=== PATIENT | male | born 1990 | race Caucasian/White ===

== ENCOUNTER 2016-12-05 10:18 | Emergency (ER) | payer OTHER ==
[2016-12-05 11:55] VITALS: BP 142/90
--- NOTE | 2016-12-05 13:26 | UC ---
Eye Complaint HPI - HPI Summary HPI Summary: TWO DAYS OF LEFT UPPER EYELID PAIN AND SWELLING. NO DISCHARGE. NO COLD SYMPTOMS. NO PAIN WITH MOVEMENT OF EYE. NO CHANGES IN VISION, OR DISCOMFORT TO EYE ITSELF. NO FEVER. - History of Current Complaint Chief Complaint: UCEye Stated Complaint: LEFT EYE COMPLAINT Time Seen by Provider: 12/05/16 13:05 Hx Obtained From: Patient Onset/Duration: Gradual Onset, Lasting Days Location of Injury: Eye Lid (upper) Character: Dull Aggravating Factor(s): Nothing Associated Signs And Symptoms: Positive: Swelling - RIGHT UPPER EYELID. Negative: Vision Impairment Right, Vision Impairment Left, Fever - Risk Factors Penetrating Injury Risk Factor: Negative Globe Rupture Risk Factors: Negative Acute Glaucoma Risk Factors: Negative Optic Artery Occlusion Risk Factors: Negative - Allergies/Home Medications Allergies/Adverse Reactions: Allergies Allergy/AdvReac Type Severity Reaction Status Date / Time No Known Allergies Allergy Verified 12/05/16 11:51 PMH/Surg Hx/FS Hx/Imm Hx Previously Healthy: Yes Endocrine History Of: Denies: Diabetes, Thyroid Disease Cardiovascular History Of: Denies: Cardiac Disorders, Hypertension Respiratory History Of: Denies: COPD, Asthma GI/ History Of: Denies: Ulcer - Surgical History Surgical History: Yes Surgery Procedure, Year, and Place: wisdom teeth extraction - Family History Known Family History: Negative: Respiratory Disease - Social History Occupation: Employed Full-time Lives: With Family Alcohol Use: Occasionally Substance Use Type: None Smoking Status (MU): Never Smoked Tobacco Review of Systems Constitutional: Negative Skin: Negative Eyes: Other - LEFT SUPERIOR LID EDEMA ERRETHEMA ENT: Negative Respiratory: Negative Cardiovascular: Negative Gastrointestinal: Negative Genitourinary: Negative Motor: Negative Neurovascular: Negative Musculoskeletal: Negative Neurological: Negative Psychological: Negative All Other Systems Reviewed And Are Negative: Yes Physical Exam Triage Information Reviewed: Yes Appearance: Well-Appearing, No Pain Distress, Well-Nourished Vital Signs: Initial Vital Signs Temp 98.5 F 12/05/16 11:52 Pulse 72 12/05/16 11:52 Resp 16 12/05/16 11:52 BP 142/90 12/05/16 11:52 Pulse Ox 100 12/05/16 11:52 Vital Signs Reviewed: Yes Eyes: Positive: Other: - LEFT SUPERIOR LID ERRETHEMA AT LATERAL ASPECT ENT Exam: Normal ENT: Positive: Normal ENT inspection, Hearing grossly normal, Pharynx normal, TMs normal Dental Exam: Normal Neck exam: Normal Neck: Positive: Supple, Nontender Respiratory Exam: Normal Respiratory: Positive: Chest non-tender, Lungs clear, Normal breath sounds, No respiratory distress Cardiovascular Exam: Normal Cardiovascular: Positive: RRR, No Murmur, Pulses Normal Abdominal Exam: Normal Abdomen Description: Positive: Nontender, No Organomegaly Musculoskeletal Exam: Normal Neurological Exam: Normal Psychological Exam: Normal Skin Exam: Normal Eye Complaint Course/Dx - Differential Dx/Diagnosis Differential Diagnosis/HQI/PQRI: Conjunctivitis, Periorbital Cellulitis, Other Provider Diagnoses: STYE LEFT SUPERIOR EYELID. POSSIBLE EARLY CELLULITIS LEFT SUPERIOR EYELID Discharge - Discharge Plan Condition: Stable Disposition: HOME Prescriptions: Amoxicillin/Clavulanate TAB* [Augmentin TAB 875*] 875 mg PO BID #20 tab Patient Education Materials: Niru (ED) Referrals: Gurdeep Ayala PA [Primary Care Provider] - Aman Dean MD [Medical Doctor] -
== END 2016-12-05 13:34 | disposition home or self-care (01) ==
LOC: UCCORT 10:18
DX: H00.014 Hordeolum externum left upper eyelid (principal)
CPT/HCPCS: 99212; G0463

== ENCOUNTER 2017-02-13 17:31 | Emergency (ER) | payer OTHER ==
[2017-02-13 18:21] VITALS: BP 154/97
--- NOTE | 2017-02-13 18:46 | UC ---
Back Pain HPI - HPI Summary HPI Summary: Patient started having low back pain after working on 02/10/17. starts left low back and radiates accross the low back - History of Current Complaint Chief Complaint: UCBackPain Stated Complaint: LOW BACK PAIN Time Seen by Provider: 02/13/17 18:11 Hx Obtained From: Patient Onset/Duration: Sudden Onset, Lasting Days Timing: Constant Severity Initially: Moderate Severity Currently: Severe Back Pain: Is Discrete @ - low back Character: Aching, Throbbing, Stiffness Aggravating: Movement Alleviating: Rest - Risk Factors AAA Risk Factors: Negative TAD Risk Factors: Negative - Allergies/Home Medications Allergies/Adverse Reactions: Allergies Allergy/AdvReac Type Severity Reaction Status Date / Time No Known Allergies Allergy Verified 02/13/17 18:21 Home Medications: Home Medications Acetaminophen [Extra Strength Acetaminop] 1,000 mg PO ONCE 02/13/17 [History Confirmed 02/13/17] PMH/Surg Hx/FS Hx/Imm Hx Previously Healthy: Yes Endocrine History Of: Denies: Diabetes, Thyroid Disease Cardiovascular History Of: Denies: Cardiac Disorders, Hypertension Respiratory History Of: Denies: COPD, Asthma GI/ History Of: Denies: Ulcer - Surgical History Surgical History: Yes Surgery Procedure, Year, and Place: wisdom teeth extraction - Family History Known Family History: Negative: Respiratory Disease - Social History Alcohol Use: Occasionally Substance Use Type: None Smoking Status (MU): Never Smoked Tobacco - Immunization History Most Recent Influenza Vaccination: none Review of Systems Constitutional: Negative Skin: Negative Eyes: Negative ENT: Negative Respiratory: Negative Cardiovascular: Negative Gastrointestinal: Negative Genitourinary: Negative Motor: Negative Neurovascular: Negative Musculoskeletal: Arthralgia, Myalgia Neurological: Negative Psychological: Negative All Other Systems Reviewed And Are Negative: Yes Physical Exam Triage Information Reviewed: Yes Appearance: Well-Appearing, Well-Nourished, Pain Distress Vital Signs: Initial Vital Signs Temp 98.5 F 02/13/17 18:17 Pulse 76 02/13/17 18:17 Resp 17 02/13/17 18:17 BP 154/97 02/13/17 18:17 Pulse Ox 98 02/13/17 18:17 Vital Signs Reviewed: Yes Eye Exam: Normal Eyes: Positive: Conjunctiva Clear ENT Exam: Normal ENT: Positive: Hearing grossly normal, Pharynx normal, TMs normal Dental Exam: Normal Neck exam: Normal Neck: Positive: Supple, Nontender, No Lymphadenopathy Respiratory Exam: Normal Respiratory: Positive: Chest non-tender, Lungs clear, Normal breath sounds Cardiovascular Exam: Normal Cardiovascular: Positive: RRR, No Murmur, Pulses Normal Abdominal Exam: Normal Abdomen Description: Positive: Nontender, No Organomegaly, Soft Bowel Sounds: Positive: Present Musculoskeletal: Positive: Strength Intact, No Edema, ROM Limited @ - in low back EXT and later flx Neurological Exam: Normal Neurological: Positive: Alert, Muscle Tone Normal Psychological Exam: Normal Skin Exam: Normal Back Pain Course/Dx - Course Course Of Treatment: hx obtained, exam performed, muscle testing performed, educated on stretching and treatment of low back pain - Differential Dx/Diagnosis Differential Diagnosis/HQI/PQRI: Herniated Disc, Strain, Sprain Provider Diagnoses: low back strain Discharge - Discharge Plan Condition: Stable Disposition: HOME Patient Education Materials: Low Back Strain (ED), Lower Back Exercises (ED), Core Strengthening Exercises (GEN) Additional Instructions: 1. take the meidciation as prescribed. 2. start doing the stretches 3. follow up with PT referral
== END 2017-02-13 19:05 | disposition home or self-care (01) ==
LOC: UCCORT 17:31
DX: S39.012A Strain of muscle, fascia and tendon of lower back, initial encounter (principal); X58.XXXA Exposure to other specified factors, initial encounter; Y93.9 Activity, unspecified; Y92.9 Unspecified place or not applicable
CPT/HCPCS: 99211; G0463

== ENCOUNTER 2017-02-20 16:26 | Emergency (ER) | payer OTHER ==
[2017-02-20 16:53] VITALS: BP 144/83
--- NOTE | 2017-03-05 08:48 | UC ---
Back Pain HPI - HPI Summary HPI Summary: Patient presents to with CC of back pain since last week. He was seen in the center and given low back exercises and meloxicam for relief. He notes to continuing back, not better or worse, and feels he cannot go to work in this state. The pain is located in the lumbar spine and radiates to the leg, but denies numbness or tingling. He denies bladder or bowel dysfunction. He states nothing has changed since last week, but states that he feels he would re -injure himself if he goes back to work too early. - History of Current Complaint Chief Complaint: UCBackPain Stated Complaint: RE CK/LOW BACK PAIN Time Seen by Provider: 02/20/17 16:54 Hx Obtained From: Patient Onset/Duration: Gradual Onset Timing: Constant Severity Initially: Moderate Severity Currently: Moderate Pain Intensity: 2 Pain Scale Used: 0-10 Numeric Back Pain: Is Discrete @ - low back Character: Dull, Aching Aggravating: Movement, Lifting Alleviating: Rest Associated Signs And Symptoms: Positive: Negative - Risk Factors AAA Risk Factors: Negative TAD Risk Factors: Negative Cauda Equina Risk Factors: Negative Epidural Abscess Risk Factors: Negative - Allergies/Home Medications Allergies/Adverse Reactions: Allergies Allergy/AdvReac Type Severity Reaction Status Date / Time No Known Allergies Allergy Verified 02/20/17 16:53 PMH/Surg Hx/FS Hx/Imm Hx Previously Healthy: Yes Endocrine History Of: Denies: Diabetes, Thyroid Disease Cardiovascular History Of: Denies: Cardiac Disorders, Hypertension Respiratory History Of: Denies: COPD, Asthma GI/ History Of: Denies: Ulcer - Surgical History Surgical History: None Surgery Procedure, Year, and Place: wisdom teeth extraction - Family History Known Family History: Negative: Respiratory Disease - Social History Occupation: Employed Full-time Lives: With Family Alcohol Use: Occasionally Substance Use Type: None Smoking Status (MU): Never Smoked Tobacco Have You Smoked in the Last Year: No - Immunization History Most Recent Influenza Vaccination: none Review of Systems Constitutional: Negative Respiratory: Negative Cardiovascular: Negative Motor: Negative Neurovascular: Negative Musculoskeletal: Arthralgia - lower back pain Neurological: Negative Psychological: Negative All Other Systems Reviewed And Are Negative: Yes Physical Exam Triage Information Reviewed: Yes Appearance: Well-Appearing, No Pain Distress, Well-Nourished Vital Signs: Initial Vital Signs Temp 98.3 F 02/20/17 16:43 Pulse 85 02/20/17 16:43 Resp 14 02/20/17 16:43 BP 144/83 02/20/17 16:43 Pulse Ox 99 02/20/17 16:43 Vital Signs Reviewed: Yes Eye Exam: Normal Eyes: Positive: Conjunctiva Clear ENT Exam: Normal Dental Exam: Normal Neck exam: Normal Neck: Positive: Supple, Nontender, No Lymphadenopathy Respiratory Exam: Normal Respiratory: Positive: Chest non-tender, Lungs clear Musculoskeletal: Positive: ROM Intact, Other: - Thorough physical exam was performed, focusing on thoracic and lumbar special tests and ROM. Due to patient pain around injury, physical exam was limited. Limited ROM. Flip Test negative. Straight leg raise positive. Kernig test positive. Negative Babinksi. Hip flexion and extension, knee extension, dorsiflexion, great toe extension and plantar flexion intact. Rotating at hips limited d/t pain. Nerve roots L4- S2 reflexes intact. L1-S2 nerve root sensory intact. No saddle anesthesia. Gait normal. Neurological Exam: Normal Neurological: Positive: Alert Psychological: Positive: Normal Response To Family, Age Appropriate Behavior Skin Exam: Normal Back Pain Course/Dx - Course Course Of Treatment: No bladder or bowel dysfunction. No numbness or tingling noted. Patient given orthopedic follow up in 5-7 days. Encouraged Meloxicam daily with meals for pain. Return precautions given. Educated patient regarding back injuries and healing time and the need for further imaging if discomfort is present for > 6 weeks. Flexeril and lidocaine patch 5% given. 1 week off work. Note given for patient. - Differential Dx/Diagnosis Differential Diagnosis/HQI/PQRI: Fracture, Herniated Disc, Strain, Sprain Provider Diagnoses: Lumbar strain Discharge - Discharge Plan Condition: Stable Disposition: HOME Prescriptions: Cyclobenzaprine TAB* [Flexeril TAB*] 10 mg PO BID PRN #20 tab MDD 2 PRN Reason: Pain Lidocaine PATCH 5%* [Lidoderm 5% Patch*] 1 patch TRANSDERM DAILY #10 patch Meloxicam(NF) [Mobic(NF)] 7.5 mg PO BID #20 tab MDD 2 Forms: *Work Release Referrals: Gurdeep Ayala PA [Primary Care Provider] - Additional Instructions: LIDOCAINE PATCH - LEAVE ON FOR 12 HOURS. MOBIC TWICE DAILY FOR 10 DAYS. FLEXERIL TWICE DAILY FOR 10 DAYS NEEDED OR UNTIL PAIN DISSIPATES. MOIST HEAT TO THE AREA SEVERAL TIMES PER DAY - BUT NOT AT THE SAME TIME LIDOCAINE PATCH.
== END 2017-02-20 17:25 | disposition home or self-care (01) ==
LOC: UCCORT 16:26
DX: S39.012D Strain of muscle, fascia and tendon of lower back, subsequent encounter (principal); X58.XXXD Exposure to other specified factors, subsequent encounter
CPT/HCPCS: 99212; G0463

== ENCOUNTER → 2017-12-18 09:35 | Emergency (ER) | payer OTHER ==
[2017-12-18 11:55] VITALS: BP 160/91
--- NOTE | 2017-12-18 12:19 | UC ---
Throat Pain/Nasal Rehan HPI - HPI Summary HPI Summary: Pt c/o sudden onset of fever chills, nasal congestion ST, cough X 2 days. Pt did not get flu vaccine this year - History of Current Complaint Chief Complaint: UCRespiratory Stated Complaint: RICH,FEVER,ACHY,ST Time Seen by Provider: 12/18/17 11:53 Hx Obtained From: Patient Onset/Duration: Sudden Onset, Lasting Days, Still Present Severity: Moderate Pain Intensity: 4 Associated Signs & Symptoms: Positive: Dysphagia, Fever - Epiglottits Risk Factors Epiglottis Risk Factors: Negative - Allergies/Home Medications Allergies/Adverse Reactions: Allergies Allergy/AdvReac Type Severity Reaction Status Date / Time No Known Allergies Allergy Verified 12/18/17 11:51 Home Medications: Home Medications NK [No Home Medications Reported] 12/18/17 [History Confirmed 12/18/17] PMH/Surg Hx/FS Hx/Imm Hx Previously Healthy: Yes - Surgical History Surgical History: None Surgery Procedure, Year, and Place: wisdom teeth extraction - Family History Known Family History: Negative: Respiratory Disease - Social History Occupation: Employed Full-time Lives: With Family Alcohol Use: Rare Substance Use Type: None Smoking Status (MU): Never Smoked Tobacco Have You Smoked in the Last Year: No - Immunization History Most Recent Influenza Vaccination: none Review of Systems Constitutional: Fever, Chills, Fatigue Skin: Negative Eyes: Negative ENT: Sore Throat Respiratory: Cough Cardiovascular: Negative Gastrointestinal: Negative Genitourinary: Negative Motor: Negative Neurovascular: Negative Musculoskeletal: Myalgia Neurological: Headache Psychological: Negative Is Patient Immunocompromised?: No All Other Systems Reviewed And Are Negative: Yes Physical Exam Triage Information Reviewed: Yes Appearance: Ill-Appearing Vital Signs: Initial Vital Signs Temp 97.6 F 12/18/17 11:51 Pulse 95 12/18/17 11:51 Resp 16 12/18/17 11:51 BP 160/91 12/18/17 11:51 Pulse Ox 100 12/18/17 11:51 Vital Signs Reviewed: Yes Eye Exam: Normal ENT Exam: Other ENT: Positive: Pharyngeal erythema, Nasal congestion Dental Exam: Normal Neck exam: Normal Respiratory Exam: Normal Cardiovascular Exam: Normal Musculoskeletal Exam: Normal Neurological Exam: Normal Psychological Exam: Normal Skin Exam: Normal Diagnostics - Laboratory Diagnostic Studies Completed/Ordered: Rapid flu negative Throat Pain/Nasal Course/Dx - Differential Dx/Diagnosis Differential Diagnosis/HQI/PQRI: Influenza, Pharyngitis, URI Provider Diagnoses: URI Discharge - Discharge Plan Condition: Stable Disposition: HOME Patient Education Materials: Upper Respiratory Infection (ED) Referrals: Lashaun Centeno MD [Primary Care Provider] -
== END | disposition home or self-care (01) ==
LOC: UCCORT 09:35
DX: J06.9 Acute upper respiratory infection, unspecified (principal)
CPT/HCPCS: 87502; 87651; 99211; G0463

== ENCOUNTER → 2019-05-23 13:14 | Emergency (ER) | payer OTHER ==
[2019-05-23 13:43] LABS: ABS Eosinophils 0.1 10^3/ul (0-0.6); ABS Lymphocytes 1.7 10^3/ul (1.0-4.8); ABS Monocytes 0.7 10^3/ul (0-0.8); ABS Neutrophils 6.2 10^3/ul (1.5-7.7); Eosinophil % 0.8 %; Hematocrit 47 % (42-52); Hemoglobin 15.9 g/dL (14.0-18.0); Mean Corpuscular HGB Conc 34 g/dL (31-36); Mean Corpuscular Hemoglobin 31 pg (27-31); Mean Corpuscular Volume 90 fL (80-94); Mean Platelet Volume 8.1 fL (7.4-10.4); Platelet Count 238 10^3/uL (150-450); Red Blood Count 5.21 10^6 /uL (4.18-5.48); Red Cell Distribution Width 14 % (10-15); White Blood Count 8.7 10^3/uL (3.5-10.8)
[2019-05-23 14:06] LABS: Troponin I 0.01 ng/mL (<0.04)
[2019-05-23 14:07] LABS: Albumin 4.8 g/dL (3.2-5.2); Albumin/Globulin Ratio 1.5 (1-3); BUN/Creatinine Ratio 10.5 (8-20); Calcium 9.8 mg/dL (8.6-10.3); EGFR African American 91.3 (>60); EGFR Non-African American 75.4 (>60); Globulin 3.2 g/dL (2-4); Potassium 4.3 mmol/L (3.5-5.0); Total Bilirubin 0.5 mg/dL (0.2-1.0)
[2019-05-23 14:16] LABS: INR 1.19 (0.82-1.09)
--- NOTE | 2019-05-23 14:19 | ED ---
HPI Chest Pain - HPI Summary HPI Summary: This pt is a 29 y/o male, accompanied by , [facility] since 12:00 today. Pt reports he clocked into work this morning at 06:55 and was feeling well (he works at [employer] in the [employer] line). He notes he slept ok last night and was feeling well while at work. Pt ate 2 sausage links for lunch. After lunch today around 12:00, he became aware of his heart beat which he describes as racing. He used an ana on his phone that showed a heart beat of 72 bpm. Pt notes he started stretching and began pushing on his chest to see if it would help. He describes feeling pressure on his left side of chest which he rates as 2/10 in severity and left shoulder and bicep tingling but no pain. Denies SOB, nausea at the time, dizziness, lightheadedness , diaphoresis. He currently rates his pressure 2/10 in severity. Denies abd pain , back pain, leg pain, leg swelling. This episode of chest pain has happened in the past, exactly the same thing, about 2 months ago but resolved on its own. Pt also reports one week ago he had a dizziness episode after going up and down the stairs a couple of times while holding his daughter. He states he had to put his daughter down because he felt like he would fall over and sat down until his arrived. Father with throat CA and cardiomyopathy. Pt states he has been ruled out for cardiomyopathy twice, the most recent was within the past 1-2 years. Pt denies tobacco use. He does not take any medications. NKDA. - History of Current Complaint Chief Complaint: EDChestPainROMI Time Seen by Provider: 05/23/19 14:09 Hx Obtained From: Patient Onset/Duration: Started Hours Ago, Still Present Timing: Lasting Hours Current Severity: Mild Pain Intensity: 2 Pain Scale Used: 0-10 Numeric Chest Pain Location: Left Anterior Chest Pain Radiates: No Character: Pressure/Squeezing - pressure Aggravating Factor(s): Nothing Alleviating Factor(s): Nothing Associated Signs and Symptoms: Positive: Chest Pain, Tingling. Negative: Dizziness, Shortness of Breath, Fever, Chills, Lightheadedness, Diaphoresis, Nausea, Abdominal Pain, Calf Pain/Swelling, Vomiting - Allergy/Home Medications Allergies/Adverse Reactions: Allergies Allergy/AdvReac Type Severity Reaction Status Date / Time No Known Allergies Allergy Verified 05/23/19 14:08 PMH/Surg Hx/FS Hx/Imm Hx Endocrine/Hematology History: Denies: Hx Diabetes, Hx Thyroid Disease Cardiovascular History: Denies: Hx Hypertension Respiratory History: Denies: Hx Asthma, Hx Chronic Obstructive Pulmonary Disease (COPD) GI History: Denies: Hx Ulcer - Surgical History Surgical History: Yes Surgery Procedure, Year, and Place: wisdom teeth extraction Infectious Disease History: No Infectious Disease History: Denies: Hx Hepatitis, Hx Human Immunodeficiency Virus (HIV), Traveled Outside the [place] in Last 30 Days - Family History Known Family History: Positive: Cardiac Disease - Father with cardiomyopathy Negative: Respiratory Disease Family History: Father with thorat CA - Social History Alcohol Use: Rare Substance Use Type: Reports: None Smoking Status (MU): Never Smoked Tobacco Have You Smoked in the Last Year: No Review of Systems Negative: Fever, Chills, Skin Diaphoresis Positive: Chest Pain Negative: Shortness Of Breath Negative: Abdominal Pain, Vomiting, Nausea Negative: Other - NEGATIVE: back pain Neurological: Other - NEGATIVE: dizziness, lightheadedness Positive: Paresthesia - in left shoulder and bicep All Other Systems Reviewed And Are Negative: Yes Physical Exam - Summary Physical Exam Summary: Appearance: Well-appearing, Well-nourished, lying in bed comfortably Skin: Warm, dry, no obvious rash Eyes: sclera anicteric, no conjunctival pallor ENT: mucous membranes moist, pharynx appears normal Neck: Supple, nontender Respiratory: Clear to auscultation, no signs of respiratory distress Cardiovascular: Normal S1, S2. No murmurs. Normal distal pulses in tibial and radial bilaterally. Abdomen: Soft, nontender, normal active bowel sounds present Musculoskeletal: Normal, Strength/ROM Intact Neurological: A&Ox3, awake and alert, mentation is normal, speech is fluent and appropriate Psychiatric: affect is normal, does not appear anxious or depressed Triage Information Reviewed: Yes Vital Signs On Initial Exam: Initial Vitals Temp Pulse Resp BP Pulse Ox 97.4 F 96 20 165/87 99 05/23/19 13:21 05/23/19 13:21 05/23/19 13:21 05/23/19 13:21 05/23/19 13:21 Vital Signs Reviewed: Yes Diagnostics - Vital Signs Vital Signs Temp Pulse Resp BP Pulse Ox 05/23/19 13:21 97.4 F 96 20 165/87 99 - Laboratory Lab Results: Lab Results 05/23/19 05/23/19 Range/Units 13:32 13:32 WBC 8.7 (3.5-10.8) 10^3/uL RBC 5.21 (4.18-5.48) 10^6 /uL Hgb 15.9 (14.0-18.0) g/dL Hct 47 (42-52) % MCV 90 (80-94) fL MCH 31 (27-31) pg MCHC 34 (31-36) g/dL RDW 14 (10-15) % Plt Count 238 (150-450) 10^3/uL MPV 8.1 (7.4-10.4) fL Neut % (Auto) 71.2 % Lymph % (Auto) 19.0 % [place] % (Auto) 8.5 % Eos % (Auto) 0.8 % Baso % (Auto) 0.5 % Absolute Neuts (auto) 6.2 (1.5-7.7) 10^3/ul Absolute Lymphs (auto) 1.7 (1.0-4.8) 10^3/ul Absolute Monos (auto) 0.7 (0-0.8) 10^3/ul Absolute Eos (auto) 0.1 (0-0.6) 10^3/ul Absolute Basos (auto) 0.0 (0-0.2) 10^3/ul Absolute Nucleated RBC 0.0 10^3/ul Nucleated RBC % 0.0 Sodium 139 (135-145) mmol/L Potassium 4.3 (3.5-5.0) mmol/L Chloride 104 (101-111) mmol/L Carbon Dioxide 27 (22-32) mmol/L Anion Gap 8 (2-11) mmol/L BUN 12 (6-24) mg/dL Creatinine 1.14 (0.67-1.17) mg/dL Est GFR ( Amer) 91.3 (>60) Est GFR (Non-Af Amer) 75.4 (>60) BUN/Creatinine Ratio 10.5 (8-20) Glucose 102 H (70-100) mg/dL Calcium 9.8 (8.6-10.3) mg/dL Total Bilirubin 0.50 (0.2-1.0) mg/dL AST 22 (13-39) U/L ALT 43 (7-52) U/L Alkaline Phosphatase 62 (34-104) U/L Troponin I 0.01 (<0.04) ng/mL Total Protein 8.0 (6.4-8.9) g/dL Albumin 4.8 (3.2-5.2) g/dL Globulin 3.2 (2-4) g/dL Albumin/Globulin Ratio 1.5 (1-3) Result Diagrams: 05/23/19 13:32 05/23/19 13:32 Lab Statement: Any lab studies that have been ordered have been reviewed, and results considered in the medical decision making process. - EKG 13:18 Cardiac Rate: NL - at 91 bpm EKG Rhythm: Sinus Rhythm Summary of EKG Findings: NSR at 91 bpm, P waves, QRS complex, and T waves are within normal limits, T waves and intervals are normal, no ischemic changes. This is a normal EKG. Re-Evaluation - Re-Evaluation First Eval Re-Evaluation Time: 16:58 Comment: Reviewed results with the pt. He will be discharged home. Chest Pain Course/Dx - Course Assessment/Plan: Pt is a 29 y/o male presenting to [facility] c/o chest pain since 12 :00 today after eating lunch. At around 12:00 he became aware of his heart beat which he describes as racing. He describes feeling pressure on his left side of chest which he rates as 2/10 in severity and left shoulder and bicep tingling but no pain. EKG shows NSR at 91 bpm. Test results are unremarkable, including two negative troponins. Pt will be discharged home with follow up from his PCP. He was given a prescription for Omeprazole. - Diagnoses Provider Diagnoses: Chest pain, GERD (gastroesophageal reflux disease) Discharge - Sign-Out/Discharge Documenting (check all that apply): Patient Departure - Discharge home Patient Received Moderate/Deep Sedation with Procedure: No - Discharge Plan Condition: Good Disposition: HOME Prescriptions: Omeprazole CAP (NF) [Prilosec CAP* 20 MG] 20 mg PO DAILY #30 cap. Patient Education Materials: Chest Pain (ED), Gastroesophageal Reflux Disease ( ED) Referrals: Lashaun Centeno MD [Primary Care Provider] - 1 Week - Attestation Statements Document Initiated by Scribe: Yes Documenting Scribe: Sada Caballero Provider For Whom Scribe is Documenting (Include Credential): Maikol Flores MD Scribe Attestation: Sada He, scribed for Maikol Flores MD on 05/23/19 at 1831. Status of Scribe Document: Ready
[2019-05-23 17:13] VITALS: BP 156/100
== END | disposition home or self-care (01) ==
LOC: ED 13:14
DX: R07.9 Chest pain, unspecified (principal); K21.9 Gastro-esophageal reflux disease without esophagitis
CPT/HCPCS: 36415; 80053; 84484; 85025; 85610; 93005; 99283